=== PATIENT | female | born 1945 | race Two or more races ===

== ENCOUNTER 2018-10-07 13:40 | Outpatient (CLI) | payer OTHER ==
[~2018-10-07 13:40] MED LIST: ATENOLOL50 MG; DESONIDE15 GM; DESPEC-DM TABL1 EACH PO; DICLOFENAC POTA50 MG PO; DICLOFENAC SODI75 MG PO; LEVAQUIN750 MG PO; ORPH100T PO
== END 2018-10-07 13:53 | disposition home or self-care (01) ==
LOC: MAMO-SONO 13:40
DX: Z12.31 Encounter for screening mammogram for malignant neoplasm of breast (principal); Z87.898 Personal history of other specified conditions; N62 Hypertrophy of breast

== ENCOUNTER → 2018-10-11 | Outpatient (CLI) | payer OTHER | END | disposition home or self-care (01) | LOC: NUCLEAR 09:54 | DX: M81.0 Age-related osteoporosis without current pathological fracture (principal) ==

== ENCOUNTER 2018-12-18 06:44 | Emergency (ER) | payer OTHER ==
[~2018-12-18] VITALS: Ht 162.6 cm; Wt 67.6 kg
[2018-12-18] MEDS ORDERED: LOSARTAN POTASS50 MG (07:18)
[2018-12-18] MEDS ORDERED: FOSAMAX70 MG (07:19)
== END 2018-12-18 09:18 | disposition home or self-care (01) ==
LOC: ER 06:44
DX: M54.5 Low back pain (principal)

== ENCOUNTER 2020-03-15 11:10 | Outpatient (CLI) | payer OTHER ==
[~2020-03-15 11:10] MED LIST changes: +FOSAMAX70 MG; +LOSARTAN POTASS50 MG
== END 2020-03-15 13:26 | disposition home or self-care (01) ==
LOC: MAMO-SONO 11:10
PROVIDERS: ATTEND Obstetrics & Gynecology
DX: Z12.31 Encounter for screening mammogram for malignant neoplasm of breast (principal); N60.11 Diffuse cystic mastopathy of right breast; N60.12 Diffuse cystic mastopathy of left breast; R59.0 Localized enlarged lymph nodes

== ENCOUNTER 2021-12-23 11:53 | Outpatient (CLI) | payer OTHER | END 2021-12-23 12:04 | disposition home or self-care (01) | LOC: RAD 11:53 | PROVIDERS: ATTEND Orthopaedic Surgery Adult Reconstructive Orthopaedic Surgery | DX: Z96.652 Presence of left artificial knee joint (principal) ==

== ENCOUNTER → 2022-01-16 | Outpatient (CLI) | payer OTHER | END | disposition home or self-care (01) | LOC: NUCLEAR 10:49 | PROVIDERS: ATTEND Internal Medicine Cardiovascular Disease | DX: M81.0 Age-related osteoporosis without current pathological fracture (principal); I35.9 Nonrheumatic aortic valve disorder, unspecified; Z88.0 Allergy status to penicillin; Z88.1 Allergy status to other antibiotic agents ==

== ENCOUNTER 2022-02-03 10:41 | Outpatient (CLI) | payer OTHER | END 2022-02-03 11:11 | disposition home or self-care (01) | LOC: PPH VACUNA 10:41 | PROVIDERS: ATTEND Emergency Medicine Pediatric Emergency Medicine | DX: Z23 Encounter for immunization (principal) ==

== ENCOUNTER 2022-09-11 10:57 | Outpatient (CLI) | payer OTHER | END 2022-09-11 11:07 | disposition home or self-care (01) | LOC: PPH VACUNA 10:57 | PROVIDERS: ATTEND Emergency Medicine Pediatric Emergency Medicine | DX: Z23 Encounter for immunization (principal) ==

== ENCOUNTER 2022-09-20 15:58 | Outpatient (CLI) | payer OTHER | END 2022-09-20 16:08 | disposition home or self-care (01) | LOC: PPH VACUNA 15:58 | PROVIDERS: ATTEND Emergency Medicine Pediatric Emergency Medicine | DX: Z23 Encounter for immunization (principal) ==

== ENCOUNTER 2023-01-24 15:16 | Outpatient (CLI) | payer OTHER | END 2023-01-24 15:28 | disposition home or self-care (01) | LOC: RAD 15:16 | PROVIDERS: ATTEND Orthopaedic Surgery Adult Reconstructive Orthopaedic Surgery | DX: M17.11 Unilateral primary osteoarthritis, right knee (principal); Z96.652 Presence of left artificial knee joint ==

== ENCOUNTER 2023-02-05 10:59 | Outpatient (CLI) | payer OTHER | END 2023-02-05 11:07 | disposition home or self-care (01) | LOC: RAD 10:59 | PROVIDERS: ATTEND Orthopaedic Surgery Adult Reconstructive Orthopaedic Surgery | DX: I11.9 Hypertensive heart disease without heart failure (principal) ==

== ENCOUNTER 2023-06-01 14:42 | Outpatient (CLI) | payer OTHER | END 2023-06-01 14:57 | disposition home or self-care (01) | LOC: RAD 14:42 | PROVIDERS: ATTEND Orthopaedic Surgery Adult Reconstructive Orthopaedic Surgery | DX: Z96.653 Presence of artificial knee joint, bilateral (principal) ==

== ENCOUNTER 2025-08-25 10:43 | Outpatient (CLI) | payer OTHER | END 2025-08-25 10:50 | disposition home or self-care (01) | LOC: TOM 10:43 | PROVIDERS: ATTEND Internal Medicine Cardiovascular Disease | DX: R51.9 Headache, unspecified (principal) ==